=== PATIENT | male | born 1970 | race Caucasian/White ===

== ENCOUNTER 2022-03-27 21:43 | Emergency (ER) | payer OTHER, SELFPAY ==
--- NOTE | 2022-03-27 21:45 | XRR_ITS ---
PROCEDURE INFORMATION: Exam: XR Left Wrist Exam date and time: 03/27/2022 9:52 PM Age: 51 years old Clinical indication: Injury or trauma; Fall; Blunt trauma (contusions or hematomas); Wrist; Left TECHNIQUE: Imaging protocol: Radiologic exam of the Left wrist. Views: 3 or more views. COMPARISON: No relevant prior studies available. FINDINGS: Bones/joints: Normal. Soft tissues: Normal. XR/XR wrist LT min 3V* [id number] IMPRESSION: No acute findings.
[2022-03-27 21:48] VITALS: BP 175/99; PULSE 88; RESP 16; TEMP 36.4; O2SAT 98
--- NOTE | 2022-03-27 22:27 | W.ED.EXTPRO ---
HPI - Extremity Problem General: Chief complaint: Extremity Injury, Upper Stated complaint: left wrist pain Time Seen by Provider: 03/27/22 21:49 History of Present Illness: 51-year-old male patient comes in today with complaints of injury to the left wrist from fall this evening. Patient reports tripping and falling and catching himself with outstretched left arm. Since then patient has had pain and discomfort to left wrist. No obvious deformity is noted. Patient does have some mild swelling to the wrist. Review of Systems Musc: Reports: extremity pain and joint pain Physical Exam Const: COMMON NORMALS: alert HENMT: COMMON NORMALS: normocephalic HEAD & SCALP: normocephalic Neck/C-Spine: COMMON NORMALS: full ROM Resp: COMMON NORMALS: normal respiratory effort Cardio: COMMON NORMALS: regular rate RATE: regular rate Extremity: LEFT UPPER EXTREMITY: Yes wrist (Mild swelling and tenderness noted to the joint line of the left wrist.) Left wrist: Yes inspection, Yes palpation and Yes ROM Neuro: SENSORIUM/ORIENTATION: Yes alert Course Vital Signs: Vital signs: Vital Signs Temperature 97.5 F L 03/27/22 21:48 Pulse Rate 88 03/27/22 21:48 Respiratory Rate 16 03/27/22 21:48 Blood Pressure 175/99 03/27/22 21:48 Pulse Oximetry 98 03/27/22 21:48 Oxygen Delivery Me thod 03/27/22 21:48 MDM - Extremity (Nontraumatic) Medical Decision Making 51-year-old male patient comes in today with injury to left wrist. On exam patient has reduced range of motion due to pain and swelling. Cap refill and sensation is intact distally. Vital signs are normal except for some elevation of blood pressure. Differential diagnosis includes fracture, sprain, osteoarthritis. X-ray notes no acute injury. Reviewed exam with patient with recommendations for treatment and follow-up. Patient reported understanding and agreed to plan. Lab Data Radiology Impressions Wrist X-Ray 03/27/22 21:45 IMPRESSION: No acute findings. Discharge Plan Discharge Patient Disposition: Home Clinical Impression: Sprain and strain of wrist Condition: Stable Prescriptions: New hydrocodone-acetaminophen 5-325 mg tablet 1 tab PO Q8H PRN (Reason: pain (scale score 7-10)) Qty: 7 0RF Discharge Orders: Discharge ED (Routine); Ordered 03/27/22 Ordered By: Curtis Kingston Patient Instructions: Wrist Sprain (ED) Activity Restrictions/Additional Instructions: Activity as tolerated. Use elastic bandage for comfort and support. Use ice packs for further pain relief. Use Tylenol and ibuprofen to control pain. Use hydrocodone for severe pain. Follow-up with primary care as needed for persistent or worsening symptoms. Return to ER for new concerns. Stand Alone Forms: Work/School Release Coding Level of Care Code ED [employer] for [employer] Fwd Exam Detailed
[2022-03-27] MEDS: HYDROcodone-acetaminophen 7.5-325 mg Tablet 1 TAB PO (22:40)
== END 2022-03-27 22:50 | disposition home or self-care (01) ==
PROVIDERS: Emergency Provider Nurse Practitioner Family
DX: S63.502A Unspecified sprain of left wrist, initial encounter (principal); S66.912A Strain of unspecified muscle, fascia and tendon at wrist and hand level, left hand, initial encounter; W01.0XXA Fall on same level from slipping, tripping and stumbling without subsequent striking against object, initial encounter
CPT/HCPCS: 73110; 99283